=== PATIENT | male | born 2005 | race Caucasian/White ===

== ENCOUNTER 2025-04-25 01:34 | Emergency (ER) | payer OTHER, SELFPAY ==
[2025-04-25 01:38] VITALS: BP 134/81; PULSE 80; RESP 18; TEMP 36.3; O2SAT 97; BMI 35.9
--- NOTE | 2025-04-25 02:04 | EX.ED.DYSGE1 ---
HPI History of Present Illness Chief Complaint: Weakness Informant: patient Narrative Narrative: Patient is a 19-year-old male who reports no clinically significant past medical history. 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 He states he was sitting in a chair watching the assembly line move when all of a sudden there was a jam. He states he jumped up quickly and walked over to fix the obstruction. He states when he did this he felt a little lightheaded and weak as if he was going to pass out. He states his coworkers reported that he looked pale. He states that he did not notice any type of abnormal heart rate or rhythm. He states that after resting for 10 to 15 minutes he began to feel better. However secondary to the event occurring at work he was advised to come to the ER for evaluation. The patient states there has been no bouts of vomiting or diarrhea that could lead to dehydration. He denies any history of abnormal cardiac rhythm. He also reports he had a similar event that occurred a few months ago for which he was evaluated in outside ER. He states at that time his workup was negative and he was advised that he just needs to drink fluids. PFSH PFSH Medical History no medical history no medical history Home Medications ?Medication ?Instructions ?Recorded ?Last Taken ?Type NK 04/25/25 Unknown History Allergy/AdvReac Type Severity Reaction Status Date / Time No Known Allergies Allergy Verified 04/25/25 01:41 Family History no significant family his Surgical History no surgical history Social History Smoking Status: Former smoker [facility] ED Constitutional Constitutional ED: Denies chills or fever(s) Eyes Eyes: Denies change in vision ENT ENT ED: Denies sore throat Cardiovascular Cardiovascular: Reports other Details: Positive lightheadedness/near syncope ; Denies chest pain, palpitations or racing heartbeat Respiratory/Chest Respiratory/Chest: Denies cough or dyspnea Gastrointestinal Gastrointestinal: Denies abdominal pain, diarrhea, nausea or vomiting Musculoskeletal Musculoskeletal: Denies myalgias Integumentary Denies rash Neurologic Neurologic: Reports weakness; Denies headache(s) or paresthesias Psychiatric Psychiatric: Denies anxiety Hematologic/Lymphatic Hematologic/Lymphatic: Denies easy bleeding or easy bruising EXAM Physical Exam Const Vital Signs: 04/25/25 01:38 04/25/25 01:38 04/25/25 02:20 Temperature 97.4 F L 98.3 F Temperature Source Oral Pulse Rate 80 77 Respiratory Rate 18 14 Respiratory Effort Normal Respiratory Pattern Normal Blood Pressure 134/81 H 124/78 H Blood Pressure Mean 98 93 Pulse Ox 97 100 Oxygen Delivery Method Room Air Positive well nourished and well developed General Appearance ED: well developed; Negative for pallor HEENT Reports moist mucous membranes HEENT Narrative: Normocephalic atraumatic No tongue or lip swelling no oral lesions no airway edema or compromise; no secondary findings in the posterior pharynx to suggest infection Mucous membranes are moist Eyes PERRL and EOMs intact bilaterally General Eye ED: Negative for scleral icterus Neck supple Resp normal respiratory effort and clear to auscultation bilaterally Cardio regular rate and regular rhythm Rate: other Other Details: Regular rate and rhythm without murmurs rubs or gallop Radial and carotid pulses are equal and symmetric Extremity normal to inspection Neuro oriented x3, CN's II-XII intact bilaterally and no sensory deficits noted Neuro Narrative: GCS of 15 Cranial nerves II through XII are grossly intact without focal neurologic deficit No pronator drift no dysmetria no truncal ataxia NIH stroke scale score of 0 Sensorium / Orientation: alert Motor Exam: strength 5/5 throughout Psych mental status grossly normal Skin no rashes or lesions noted, no wounds and skin turgor normal General Skin Exam: Negative for jaundice or pallor MDM MDM MDM Narrative Medical decision making narrative: Patient arrived to the ER with stable vitals and reported spontaneous resolution of symptoms. With his report of near syncope he was placed on the advanced practice nurse. Blood pressure was stable and monitoring confirmed sinus rhythm between 80 and 90 bpm without dysrhythmia or ectopy noted. I discussed with patient potentially doing orthostatic vital signs as well as basic laboratory studies to ensure he does not have acute blood loss anemia acute kidney injury or clinically significant electrolyte abnormality. He states that he feels much better at this time and he does not want to undergo a workup as the last time he had this there was no findings noted on his medical evaluation. He was informed that his history would indicate that as he stood up quickly from the chair he was sitting in and then felt symptoms that this was orthostatic near syncope. He states that he is agreeable with this and he would prefer to follow-up with the family doctor as an outpatient if symptoms persist but at this time as his vitals are stable his heart had regular rate and rhythm and he has had spontaneous resolution of symptoms he does not want undergo any type of testing and therefore he will be discharged as requested History & Record Review Discussion w/independent historian: Patient Discharge Plan Triage Chief Complaint: Weakness ED Provider: Francisco De La Cruz Dx/Rx/DC Orders Clinical Impression: Orthostatic lightheadedness Instructions: Dizziness Fainting Causes, Orthostatic Hypotension Prescriptions: No Action NK Primary Care Provider: Care Physician,No Primary Referrals: Kwasi Hernandez MD [Med Staff - Active Staff, Family Practice] Activity Restrictions/Additional Instructions: Your history and exam would indicate that your near passing out sensation was due to your blood pressure decreasing when you stood up quickly. Please keep yourself well-hydrated and try to change positions in a slower manner in the future to prevent reoccurrence of symptoms. Follow-up with your family doctor or Dr. Hernandez to discuss further testing if symptoms are persistent and return to the ER should you have any further concerns Print Language: Faroese Disposition Disposition: Home, Self Care Discharge Date/Time: 04/25/25 02:21
[2025-04-25 02:20] VITALS: BP 124/78; PULSE 77; RESP 14; TEMP 36.8; O2SAT 100
== END 2025-04-25 02:21 | disposition home or self-care (01) ==
PROVIDERS: Emergency Provider Emergency Medicine; Visit Provider Emergency Medicine
DX: R55 Syncope and collapse (principal); Z87.891 Personal history of nicotine dependence
CPT/HCPCS: 99282